=== PATIENT | male | born 1960 | race Caucasian/White ===

== ENCOUNTER 2020-12-06 08:07 | Day surgery (SDC) | payer OTHER ==
[2020-12-04 08:34] LABS: BASOPHILS % (AUTO) 1 % (0-1); EOSINOPHILS % (AUTO) 2 % (1-7); LYMPHOCYTES % (AUTO) 25 % (22-44); MEAN CORPUSCULAR HEMOGLOBIN 32.1 pg (27.5-34.5); MEAN CORPUSCULAR HGB CONC 33.9 g/dL (33.2-36.2); MEAN PLATELET VOLUME 8.6 fL (7.4-10.4); MONOCYTES % (AUTO) 10 % (2-9); NEUTROPHILS % (AUTO) 63 % (42-75); PLATELET COUNT 150 x10^3/uL (130-400); RED BLOOD COUNT 4.69 x10^6/uL (4.38-5.82); RED CELL DISTRIBUTION WIDTH 13.1 % (9.4-14.8)
[2020-12-04 08:43] LABS: ANION GAP 4 mmol/L (5-15); CALCIUM 8.6 mg/dL (8.5-10.1); CHLORIDE 110 mmol/L (98-107); CREATININE 1.12 mg/dL (0.7-1.3)
[2020-12-04 08:47] LABS: INTERNATIONAL NORMALIZED RATIO 1.07 (0.93-1.1); PROTHROMBIN TIME 11.4 Seconds (9.6-11.5)
[~2020-12-06] VITALS: Ht 180.3 cm; Wt 93.2 kg
[~2020-12-06 08:07] MED LIST: FINA5TAB4 PO; FOLIC ACID PO; TAMS-11 PO
[2020-12-06] MEDS ORDERED: OPIUM/BELLADONNA SUPP.RECT 16.2-30 MG ONE (10:04)
[2020-12-06] MEDS ORDERED: ONDANSETRON 2MG/ML, 2ML ONE (11:02)
[2020-12-06] MEDS ORDERED: ROCURONIUM 10 MG/ML,10ML ONE (11:02)
[2020-12-06] MEDS ORDERED: SUCCINYLCHOLINE 20 MG/ML, 10ML ONE (11:02)
[2020-12-06] MEDS ORDERED: CEFAZOLIN 1,000 MG ONE (11:02)
[2020-12-06] MEDS ORDERED: MIDAZOLAM 1 MG/ML, 2ML ONE (11:02)
[2020-12-06] MEDS ORDERED: PROPOFOL 10 MG/ML, 20ML ONE (11:02)
[2020-12-06] MEDS ORDERED: ONDANSETRON 2MG/ML, 2ML IVPush PRN (11:30)
[2020-12-06] MEDS ORDERED: PROMETHAZINE 25 MG/ML, 1ML IV PRN (11:30)
[2020-12-06] MEDS ORDERED: LABETALOL 5MG/ML, 20ML IV PRN (11:30)
[2020-12-06] MEDS ORDERED: HYDROmorphone 1 MG/ML, 1ML INJ IV PRN (11:30)
[2020-12-06] MEDS ORDERED: OXYcodone 5 MG/5 ML ORAL.SOL UDC PO PRN (11:30)
[2020-12-06] MEDS ORDERED: FENTANYL PF 100 MCG/2ML IV PRN (11:30)
[2020-12-06] MEDS ORDERED: MEPERIDINE/PF 25MG/0.5ML IVPush PRN (11:30)
[2020-12-06] MEDS ORDERED: hydrALAzine 20 MG/ML, 1ML IV PRN (11:30)
[2020-12-06] MEDS ORDERED: ALBUTEROL SULFATE 2.5 MG/3 ML NPPB PRN (11:30)
[2020-12-06] MEDS ORDERED: KETOROLAC 30 MG/1 ML IV PRN (11:30)
[2020-12-06] MEDS ORDERED: METOCLOPRAMIDE 5 MG/ML, 2ML IV PRN (11:30)
[2020-12-06] MEDS ORDERED: DIAZEPAM 5 MG/ML, 2ML IV PRN ×2 (11:30)
[2020-12-06] MEDS ORDERED: PLEASE ENTER ALLERGIES MC SCH (11:30)
[2020-12-06 12:14] VITALS: BP 138/80
== END 2020-12-06 15:11 | disposition home or self-care (01) ==
LOC: OR 08:07 → 4NE 08:15 → OR 15:11
PROVIDERS: ATTEND Student in an Organized Health Care Education/Training Program
DX: N32.89 Other specified disorders of bladder (principal); I10 Essential (primary) hypertension; F12.90 Cannabis use, unspecified, uncomplicated; Z20.822 Contact with and (suspected) exposure to COVID-19; Z79.899 Other long term (current) drug therapy
CPT/HCPCS: 36415; 52000; 80048; 85025; 85610; 87635; 93005; J0330; J0690; J2250; J2405; J2704; G0378